=== PATIENT | female | born 1970 | race Asian ===

== ENCOUNTER 2016-11-05 22:13 | Emergency (ER) | payer BC ==
[~2016-11-05] VITALS: Ht 162.6 cm; Wt 59.5 kg
[~2016-11-05 22:13] MED LIST: CALC-649 PO; FERR27TA PO; FOLI-49 PO; METF500T4 PO; PREN1TAB49 PO
[2016-11-05 22:34] VITALS: Ht 162.6 cm; Wt 59.5 kg
--- NOTE | 2016-11-06 00:01 | ERD ---
ER Documentation Chief Complaint Date/Time DATE: 11/05/16 TIME: 23:59 Chief Complaint Right ear injury after irrigation @1400. HPI This is a 46-year-old female presents to the emergency room for evaluation of right-sided ear pain. The patient states that she went to her primary care physician's office for routine checkup and she states that she did have some ear wax in her ear. She states that someone at her primary care physician's office was irrigating her ear when she felt sudden pain in the right ear. She told him to stop irrigating, and the patient presented to the ER today because she started having blood coming from her right ear approximately 1 hour ago. She states she was irrigated with normal saline and hydrogen peroxide ROS All systems reviewed and are negative except as per history of present illness. Medications Home Meds Active Scripts Metformin* (Glucophage*) 500 Mg Tab, 500 MG PO BID, #30 TAB Prov:CRISTINA CHAPA MD 08/25/15 Reported Medications Calcium Carbonate (Calcium) 1 Tab Tablet, 1 TAB PO DAILY 01/15/12 Folic Acid* (Folic Acid*) 1 Mg Tablet, 1 MG PO DAILY 01/15/12 Ferrous Sulfate (Iron) 1 Tab Tablet, 1 TAB PO 10/27/11 Vits W-Ca,Fe,Fa(<1MG) () 1 Tab Tablet, 1 TAB PO 10/27/11 Allergies Allergies: Coded Allergies: No Known Allergies (Verified Allergy, 10/27/11) PMhx/Soc History of Surgery: Yes (ECTOPIC PREG) Hx Alcohol Use: No Hx Substance Use: No Hx Tobacco Use: No Physical Exam Vitals Vital Signs Date Time Temp Pulse Resp B/P Pulse Ox O2 Delivery O2 Flow Rate FiO2 11/05/16 22:34 98.9 60 20 124/74 100 Physical Exam Const: No acute distress Head: Atraumatic Eyes: Normal Conjunctiva ENT: Right tympanic membrane perforation with dried blood in the external auditory canal, left tympanic membrane within normal limits, normal External Ears, Nose and Mouth. Neck: Full range of motion..~ No meningismus. Resp: Clear to auscultation bilaterally Cardio: Regular rate and rhythm, no murmurs Abd: Soft, non tender, non distended. Normal bowel sounds Skin: No petechiae or rashes Back: No midline or flank tenderness Ext: No cyanosis, or edema Neur: Awake and alert Psych: Normal Mood and Affect Procedures/MDM This 46-year-old female presents to the emergency room for evaluation of right- sided ear pain after having her ear irrigated at her primary care physician's office. She did notice some blood and now when I evaluated her I did note a mild amount of cerumen in the right ear. Behind the cerumen I did visualize a perforated eardrum. This patient was notified that she does have a perforated eardrum in the emergency room. The patient was advised that she needs to follow -up with a ENT physician. She verbalized understanding. She will be discharged home at this time with a prescription for ofloxacin eardrops, and amoxicillin. Departure Diagnosis: Primary Impression: Perforation of right tympanic membrane Additional Impression: Right ear pain Condition: Stable CHELSEA SAHU DO November 06, 2016 00:01
[2016-11-06] MEDS ORDERED: OFLO5DRO7 RIGHT EAR (00:02)
[2016-11-06] MEDS ORDERED: AMO500 PO (00:02)
== END 2016-11-06 00:48 | disposition home or self-care (01) ==
LOC: FTE 22:13
DX: H72.91 Unspecified perforation of tympanic membrane, right ear (principal); Z79.84 Long term (current) use of oral hypoglycemic drugs
CPT/HCPCS: 99283

== ENCOUNTER 2018-04-12 09:19 | Emergency (ER) | END 2018-04-12 10:51 | disposition home or self-care (01) ==